=== PATIENT | male | born 1950 | race Caucasian/White ===

== ENCOUNTER 2017-10-04 11:08 | Inpatient (IN) | payer OTHER ==
[~2017-10-04] VITALS: Ht 188 cm; Wt 115.7 kg
[2017-10-04 11:12] VITALS: BP 178/125
[2017-10-04] MEDS ORDERED: FISH OIL 1,001000 M2 PO (11:20)
[2017-10-04] MEDS ORDERED: FLOMAX0.4 MG PO (11:20)
[2017-10-04] MEDS ORDERED: METFORMIN HCL500 MG PO (11:20)
[2017-10-04 11:40] LABS: ABSOLUTE BASOPHILS 0.1 thou/uL (0.0-0.2); ABSOLUTE EOSINOPHILS 0.1 thou/uL (0.0-0.7); ABSOLUTE LYMPHOCYTES 1.4 thou/uL (0.8-5.3); ABSOLUTE MONOCYTES 0.6 thou/uL (0.0-1.2); BASOPHILS 1.2 %; EOSINOPHILS 1.6 %; HEMATOCRIT 50.5 % (42.0-52.0); HEMOGLOBIN 16.2 gm/dL (14.0-18.0); LYMPHOCYTES 17.3 %; MCH 29.3 pg (26.0-34.0); MCHC 32.1 g/dL (28.0-37.0); MCV 91.2 fL (80.0-100.0); MONOCYTES 7.2 %; MPV 9.2 fl. (7.2-11.1); NUCLEATED RBCS 0 /100WBC; PLATELET COUNT* 258 thou/uL (150-400); POLYS 72.7 %; RBC 5.53 mil/uL (4.50-6.00); RDW-CV 15.6 % (10.5-14.5); WBC 8.3 thou/uL (4.0-11.0)
[2017-10-04 12:00] LABS: APTT 25.8 Seconds (25.0-31.3); INR 1.2
[2017-10-04 13:03] LABS: ANION GAP 11 mmol/L (7-16); BUN 16 mg/dL (7-18); CALCIUM 8.4 mg/dL (8.5-10.1); CHLORIDE 107 mmol/L (98-107); CO2 29 mmol/L (21-32); CREATININE 1.3 mg/dL (0.6-1.3); GLUCOSE 204 mg/dL (70-99); POTASSIUM 4.2 mmol/L (3.5-5.1); SODIUM 147 mmol/L (136-145)
[2017-10-04 13:28] LABS: ALBUMIN 3.5 g/dL (3.4-5.0); ALKALINE PHOSPHATASE 73 U/L (46-116); CK-MB MASS 0.8 ng/mL (<0.5-3.6); LIPASE 127 U/L (73-393); MAGNESIUM 1.6 mg/dL (1.8-2.4); NT-PRO BRAIN NAT PEPTIDE 7957 pg/mL (<300); SGOT 23 U/L (15-37); SGPT 29 U/L (30-65); TOTAL BILIRUBIN 1.2 mg/dL (<0.1-1.0); TOTAL PROTEIN 6.7 g/dL (6.4-8.2); TROPONIN-I LEVEL <0.06 ng/mL (<0.06)
[2017-10-04 15:33] VITALS: BP 181/126
[2017-10-04 15:54] VITALS: BP 176/121
[2017-10-04 18:15] VITALS: BP 172/110
[2017-10-04 21:30] VITALS: BP 155/91
[2017-10-05] VITALS (7 sets, daily range): BP systolic 112–141; BP diastolic 81–109
[2017-10-05 04:58] LABS: HEMATOCRIT 43.2 % (42.0-52.0); MCH 28.9 pg (26.0-34.0); MCHC 32.5 g/dL (28.0-37.0); MCV 88.8 fL (80.0-100.0); MPV 9.1 fl. (7.2-11.1); RBC 4.86 mil/uL (4.50-6.00); RDW-CV 15.2 % (10.5-14.5); WBC 6.7 thou/uL (4.0-11.0)
[2017-10-05 05:14] LABS: ANION GAP 7 mmol/L (7-16); BUN 18 mg/dL (7-18); CALCIUM 8.1 mg/dL (8.5-10.1); CHLORIDE 106 mmol/L (98-107); CO2 31 mmol/L (21-32); CREATININE 1.3 mg/dL (0.6-1.3); GLUCOSE 227 mg/dL (70-99); MAGNESIUM 1.7 mg/dL (1.8-2.4); POTASSIUM 3.6 mmol/L (3.5-5.1); SODIUM 144 mmol/L (136-145); TROPONIN-I LEVEL <0.06 ng/mL (<0.06)
[2017-10-05 10:23] LABS: URINE BILIRUBIN NEGATIVE (Negative); URINE BLOOD TRACE (Negative); URINE CLARITY CLEAR; URINE COLOR YELLOW; URINE GLUCOSE-RANDOM 1+ (Negative); URINE KETONES TRACE (Negative); URINE LEUKOCYTES-REFLEX NEGATIVE (Negative); URINE NITRITE-REFLEX NEGATIVE (Negative); URINE PROTEIN 2+ (Negative); URINE SPECIFIC GRAVITY 1.025 (1.005-1.030); URINE UROBILINOGEN 0.2 E.U./dl (0.2-1.0)
[2017-10-05 10:40] LABS: BACTERIA-REFLEX None Seen /HPF (None Seen); CASTS None Seen /LPF (None Seen); CRYSTALS None Seen /LPF (None Seen); MUCUS 4-6 Moderate strn/LPF (None Seen); SQUAMOUS 4-10 Moderate /LPF (0-3); URINE RBC 3-10 Few /HPF (0-2); URINE WBC-REFLEX 0-5 Rare /HPF (0-5)
[2017-10-05 11:46] LABS: MAGNESIUM 1.7 mg/dL (1.8-2.4); TROPONIN-I LEVEL <0.06 ng/mL (<0.06)
--- NOTE | 2017-10-05 13:17 | EKG ---
[place] [address] ELECTROCARDIOGRAM REPORT Name: VONNIE LUEVANODIXi Jose Room: [address] ADM IN M.R.#: [id number] Admission: 10/04/17 Attend Phys: Tushar Leonard, Discharge: Date of : 52 Report #: [id number] THIS REPORT FOR: //name// [facility] ED Test Date: 2017-10-04 Test Time: 11:16:49 Pat Name: SHREYA LUEVANO Department: Room: [facility] Gender: M Practical Nurse Clinical Coordinator: DANYELL : 1950 Requested By: Jose Giang Order Number: [id number] MD: Leonel Chiang Measurements Intervals [place] Rate: 110 P: 170 IA: 192 QRS: -33 QRSD: 102 T: 134 QT: 334 QTc: 452 Interpretive Statements Sinus or ectopic atrial tachycardia Left atrial enlargement Left axis deviation Anteroseptal infarct, age indeterminate No previous ECG available for comparison Electronically Signed On 10-05-2017 13:17:31 CONVENTIONS ASSISTANT by Leonel Chiang [email or web address] <ELECTRONICALLY SIGNED> By: Leonel Chiang MD, [facility] 10/05/17 1317 1116 111 Leonel Chiang MD, [facility] /EPI
[2017-10-06 00:09] VITALS: BP 119/92
[2017-10-06 03:59] VITALS: BP 143/109
--- NOTE | 2017-10-06 07:29 | CON ---
[address] [address] CONSULTATION Name: SHREYA LUEVANO Room: [address] IN M.R.#: [id number] Admission: 10/04/17 Attend Phys: Tushar Leoanrd, Discharge: Date of : 52 Report #: [id number] THIS REPORT FOR: //name// CC: [facility]AMP physician/PCP Tushar Leonard REQUESTING PHYSICIAN: Dr. Tushar Leonard. REASON FOR CONSULTATION: Pulmonary embolism. DISCUSSION: The patient is a pleasant 66-year-old nonsmoking man who was admitted after presenting to the Emergency Department yesterday and found to have pulmonary embolism. He had actually not been feeling well for about a month or so. He noted the onset of chest congestion, which he felt was probably a "cold." Cough generally has been mostly nonproductive, no hemoptysis. He may have had a low-grade fever at home. Over the course of the month, he has been getting progressively more short of breath. It got to the point he had difficulty walking short distances. He has also had the onset of lower extremity edema, which has been getting worse. He notes some tightness. Some numbness and tingling in his legs, left greater than right. No syncopal episodes. He has also been having some chest pressure. He does point to left side of his chest. It is worse when he does exert himself, especially when he is going out into the cold. 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 This does involve him being quite busy. 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 He has had no prior history of thromboembolic disease. No history of heart disease that he is aware of. When seen in the Emergency Department yesterday, he did not appear to be in any acute distress. He was noted to have edema in the lower extremities. His lab did reveal elevated D-dimer and proBNP. He had a chest x-ray done, did reveal evidence of pleural effusions. Followup CT angiogram of his chest with PE protocol did reveal pulmonary emboli. He has been admitted. He has already been started on Xarelto. This morning, he does feel like his shortness of breath is a little better. However, he has not been as active as he is normally at home. His cough has persisted. He has not had any additional chest pressure this morning. He is a lifelong nonsmoker. He has no history of pulmonary disease. No prior history of thromboembolic disease. He does have a history of diabetes mellitus type 2. However, he does have a physician in [facility]; his description, he has not been regular with followup. At home, he does take metformin and Flomax. PAST MEDICAL HISTORY: Remarkable 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 Nonsmoker as noted. REVIEW OF SYSTEMS: A 12-point ROS was done. No positives as above. He does admit to a substantial weight loss over the last couple of years, he cannot be specific as to the amount; however, it has been intentional. He denies any difficulty swallowing. His appetite has fallen off recently. He denies any indigestion or heartburn. He has not noted any blood in his stools. No hemoptysis. He has had the lower extremity edema as noted. No syncopal episodes. FAMILY HISTORY: Negative for heart disease, cancers, thromboembolic disease. PHYSICAL EXAMINATION: GENERAL: Appearance of a large man. He is resting in bed. He has a frequent, somewhat harsh nonproductive cough. At rest, he is in no acute distress. HEENT: Normocephalic and atraumatic. Sclerae are nonicteric. Mucous membranes are moist. Dentition is fair. NECK: Large, but supple without adenopathy. No definite JVD is appreciated. No supraclavicular adenopathy. HEART: Regular with periods of irregularity. Grade 1/6 systolic murmur. I do not appreciate an S3. P2 does not appear accentuated. LUNGS: Sounds reveal breath sounds to be generally diminished in part due to his large body habitus. May have a few faint crackles heard in the bases associated with late inspiration. No dullness to percussion. No E to A changes. No CVA tenderness. ABDOMEN: Very large and obese. Does not appear to have any hepatosplenomegaly. Nontender. EXTREMITIES: He does have 2+ edema noted. Just some generalized discomfort with palpation. No obvious cords are noted. He does have a few small varicosities noted. SKIN: Warm and dry. NEUROLOGIC: He is alert and oriented x 3. LABORATORY AND X-RAY FINDINGS: Yesterday's white count was 8300, hemoglobin 16.2, hematocrit 50.5, platelets 258,000. This morning, hemoglobin 14, hematocrit 43.2. PT, PTT were normal. D-dimer was 10.2. On his chemistries, potassium 3.6, BUN 18, creatinine of 1.3 this morning. Glucose 227 and other sugars have been in the 200-300 range. Troponins normal. Total bilirubin 1.2, AST 23, ALT 29. ProBNP 7957. He had a chest x-ray which did show cardiomegaly. Some bibasilar atelectatic changes seen. Blunting of costophrenic angles, all consistent with small pleural effusions. CT angiogram done of his chest, did show filling defects noted on the right side for right upper and right middle lobe. There are small pleural effusions noted. Cardiomegaly. Some mild atelectatic changes seen in the bases. Small amount [place] [address] CONSULTATION Name: SHREYA LUEVANO Room: [address] IN [facility]#: [id number] Admission: 10/04/17 Attend Phys: Tushar Leonard, Discharge: Date of : 52 Report #: [id number]. Ultrasound of his lower extremities is pending. Echo has been requested as well. IMPRESSION: 1. Pulmonary embolism. No prior history. By history, he is generally fairly active, though he is frequently on long automobile trips. This may be a risk factor. 2. Possible congestive heart failure. More of this may be right heart failure as well. He is a nonsmoker, he is a diabetic, and certainly be at risk for coronary artery disease. He has elevated BNP. The troponin is normal, so far has not had any acute coronary event. He has had intermittent complaints of chest tightness, maybe as an anginal equivalent. 3. Obesity. 4. Diabetes mellitus. Blood sugar was high at time of admission here. By history, he has not had good control. RECOMMENDATIONS: 1. Continue Xarelto at this time. 2. Do need echocardiogram and venous Dopplers to further assess. 3. Activity as tolerated. 4. Agree with Cardiology seeing him. At a minimum, he will probably need some type of stress testing done. 5. He will need closer followup in regards to better control of his diabetes. 6. Depending on evaluation, assess if additional hypercoagulable workup needs to be done. <ELECTRONICALLY SIGNED> By: Sarah Marshall MD 10/06/17 0729 0841 [id number] Marshall MD /nt
[2017-10-06 08:00] VITALS: BP 156/109
--- NOTE | 2017-10-06 09:08 | CON ---
[address] [address] CONSULTATION Name: SHREYA LUEVANO Room: [address] IN M.R.#: [id number] Admission: 10/04/17 Attend Phys: Tushar Leonard, Discharge: Date of : 52 Report #: [id number] THIS REPORT FOR: //name// CC: [facility]AMP physician/PCP VERENICE Leonard INDICATION: Pulmonary embolus and possible congestive heart failure. HISTORY OF PRESENT ILLNESS: The patient is a very pleasant 66-year-old gentleman who has been fairly active throughout most of his adult life. 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 A month ago, he noted increasing swelling in his lower extremities as well as the progressive onset of dyspnea on exertion as well as some orthopnea and PND. He presented to the hospital for further evaluation. In this setting, he was found to have an elevated D-dimer. Followup CTA of the chest showed evidence of acute right middle and upper lobe pulmonary emboli. He has been started on anticoagulation for this. EKG shows sinus rhythm with Q-waves in the anteroseptal leads suggestive of prior anteroseptal infarct. The patient himself denies any prior history of coronary artery disease or myocardial infarction. He denies any history of stroke. Cardiac risk factors include hypertension, hyperlipidemia and type 2 diabetes mellitus. He was given IV Lasix on admission to the hospital with prompt diuresis. With this and the initiation of anticoagulation therapy, he has had improvement in his breathing. He reports intermittent chest pressure, especially with physical activity and cold weather. He is not having any significant resting symptoms at this time. He is without other cardiac complaint. PAST MEDICAL HISTORY: 1. Type 2 diabetes mellitus. 2. Hyperlipidemia. 3. Hypertension. PAST SURGICAL HISTORY: None. SOCIAL HISTORY: The patient does not smoke. He quit smoking 40 years ago and did not smoke much then. He does not drink alcohol. He is presently single, . FAMILY HISTORY: Noncontributory. ALLERGIES: None. CURRENT MEDICATIONS: Metformin 500 mg b.i.d., Flomax 0.4 mg daily, fish oil 1000 mg daily. REVIEW OF SYSTEMS: A 14-point review of systems [place] [address] CONSULTATION Name: SHREYA LUEVANO Room: [address]#: [id number] Admission: 10/04/17 Attend Phys: Tushar Leonard, Discharge: Date of : 52 Report #: [id number] nonproductive, orthopnea, paroxysmal nocturnal dyspnea and dyspnea on exertion. He has chest pressure as outlined above. He reports diabetes, but no thyroid disease. He has no gastrointestinal complaints. He has urinary hesitancy, but no dysuria, hematuria. He denies any history of anemia, bleeding disorder, cancer or blood clots. He denies any significant allergies. No history of depression or anxiety. He has some arthritis without connective tissue disease. No recent rashes, hives or chronic skin conditions. He has no acute loss in vision. He denies decreased hearing, epistaxis or dentures. PHYSICAL EXAMINATION: VITAL SIGNS: Stable. Blood pressure 126/81, pulse 88 and regular. GENERAL: This is a pleasant gentleman who is in no distress. Mood and affect appropriate. HEENT: Extraocular muscles intact. Mucous membranes moist. NECK: Shows no jugular venous distention. I do not appreciate any carotid bruits. CHEST: Reveals clear lung coffman. I do not appreciate wheezes, rales or rhonchi. CARDIOVASCULAR: Reveals a regular rhythm with normal S1 and S2. I do not appreciate gallop or murmur. ABDOMEN: Reveals normal bowel sounds. The abdomen is soft and nontender. EXTREMITIES: Shows 2+ edema to above the knees bilaterally. SKIN: Warm and dry. LABORATORY DATA: A 12-lead EKG shows sinus rhythm with Q-waves in the anteroseptal leads suggestive of prior anteroseptal infarct. There are nonspecific T-wave inversion. Labs are reviewed. Troponins are unremarkable. NT-proBNP was 7500. Chest x-ray shows small left pleural effusion and some basilar atelectasis. CTA of the chest shows evidence of acute pulmonary emboli of the right upper and middle lobes. IMPRESSION AND RECOMMENDATIONS: 1. Acute pulmonary embolus. Recommend Xarelto 20 mg daily x 6 months. Venous Doppler studies of the lower extremities showed no evidence of DVT at this time. 2. Probable congestive heart failure. Recommend echocardiogram and stress testing. These could be obtained on an outpatient basis. Would continue moderate dose diuretic with potassium supplementation at this time to resolve volume overload. 3. Hypertension. We would recommend initiating low dose carvedilol at this [address] [place] [address] CONSULTATION Name: SHREYA LUEVANO Room: [address] IN M.R.#: [id number] Admission: 10/04/17 Attend Phys: Tushar GiseleChacorta Aisha, Discharge: Date of : 52 Report #: [id number] time. 4. History of hyperlipidemia. Recommend fasting lipid profile. <ELECTRONICALLY SIGNED> By: Leonel Chiang MD, FACC 10/06/17 0908 1221 [id number] Chiang MD, FACC /nt
[2017-10-06 12:51] VITALS: BP 164/119
[2017-10-06 17:00] VITALS: BP 151/102
[2017-10-06 20:00] VITALS: BP 158/106
[2017-10-07] VITALS (7 sets, daily range): BP systolic 120–155; BP diastolic 87–109
[2017-10-07 06:48] LABS: ANION GAP 9 mmol/L (7-16); BUN 21 mg/dL (7-18); CALCIUM 8.4 mg/dL (8.5-10.1); CHLORIDE 105 mmol/L (98-107); CHOLESTEROL 132 mg/dL (<200); CO2 33 mmol/L (21-32); CREATININE 1.2 mg/dL (0.6-1.3); GLUCOSE 103 mg/dL (70-99); HDL CHOLESTEROL 39 mg/dL (>40); LDL CHOLESTEROL 74 mg/dL (<100); POTASSIUM 3.4 mmol/L (3.5-5.1); SODIUM 147 mmol/L (136-145); TC:HDL 3.4 Ratio (Not establshd); TRIGLYCERIDE 97 mg/dL (<150); VLDL 19 mg/dL (<40)
[2017-10-07 06:49] LABS: SERUM ASSESSMENT Clear
--- NOTE | 2017-10-07 15:15 | CARDNUC ---
[place] [address] CARDIAC NUCLEAR IMAGING REPORT Name: SHREYA LUEVANO Room: [address] IN [facility]#: [id number] Admission: 10/04/17 Attend Phys: Tushar Wells Discharge: Date of : 52 Date of Service: 10/07/17 1515 Report #: [id number] THIS REPORT FOR: //name// APPROVED REPORT Exam: Nuclear Stress Test Indication: Chest pain, Dyspnea Patient Location: In-Patient Stress Tech: Anneliese Garcia Stress Nurse: Nanci Corona RN [place] Tech:AMOR Echevarria Ht: 6 ft 2 in Wt: 267 lbs BSA: 2.46 m2 BMI: 34.27 Medical History Medical History: pulomnary emboli right lung, mi, hyperlipidemia, htn, dm Medications: carvedilol, furosemide, lisinopril, rivaroxabin Allergies: nkda Cardiac Risk Factors: Age, HTN, Hyperlipidemia, DM Meds Held (24 hrs): carvedilol Stress Test Details Stress Test: Pharmacologic stress testing performed using 0.4 mg of regadenoson per 5 mL given IV over 10 seconds. Reason for pharmacologic stress test: physical limitation. HR Resting HR: 87 bpm Max Heart Rate (APMHR): 155 bpm Max HR Achieved: 96 bpm Target HR (85% APMHR): 131 bpm % of APMHR: 61 Recovery HR: 98 bpm BP Resting BP: 152/109 mmHg Max BP: 158/104 mmHg ECG Resting ECG: Sinus Rhythm, nonspecific ST-T abnormalities Stress ECG: Sinus Rhythm, nonspecific ST-T abnormalities ST Change: None Arrhythmia: [place] [address] CARDIAC NUCLEAR IMAGING REPORT Name: SHREYA LUEVANO Room: [address]#: [id number] Admission: 10/04/17 Attend Phys: Tushar Wells Discharge: Date of : 52 Date of Service: 10/07/17 1515 Report #: [id number] Recovery ECG: Sinus Rhythm, nonspecific ST-T abnormalities Recovery ST Change: None Recovery Arrhythmia: None Clinical Reason for Termination: Completed protocol Stress Symptoms: none Exercise duration: 0 min sec Exercise capacity: 1 METs The patient had no significant symptoms with Lexiscan infusion. Nurse Comments pt tolerated well Stress ECG Conclusion The baseline EKG showed sinus rhythm with nonspecific mild downsloping ST segment depression diffusely. EKGs obtained during and post Lexiscan infusion showed sinus rhythm with no significant ST or T wave changes when compared to baseline. There were no stress-induced arrhythmias. NM EXAM: Myocardial Perfusion STRESS/REST Imaging Protocol: Stress Tc-99m/Rest Tc-99m 2 days Pharmacologic Stress Pharmacologic stress test was performed by injecting Regadenoson 0.4 mg IV push followed by the intravenous injection of 41.2 mCi of Tc-99m Sestamibi. Time of stress injection: 1105 Date: 10/07/2017 Time of stress imagin Administration Route: IV Gated Stress SPECT was performed 40 minutes after stress injection. The images were gated to evaluate regional wall motion and calculate left ventricular ejection fraction. Prone imaging was performed. Study Quality Study: Good Artifact: No artifact Study Data Post stress, the left ventricular ejection was 29%.. [place] [address] CARDIAC NUCLEAR IMAGING REPORT Name: SHREYA LUEVANO Room: [address] IN [facility]#: [id number] Admission: 10/04/17 Attend Phys: Tushar Wells Discharge: Date of : 52 Date of Service: 10/07/17 1515 Report #: [id number] Perfusion Normal left ventricular perfusion. Wall Motion There is severe diffuse global hypokinesis. Nuclear Conclusion ECG Findings: non-diagnostic Clinical Findings: negative for ischemia Nuclear Findings: negative for ischemia Exercise Capacity: not assessed Left Ventricular Function: abnormal Risk Study: moderate Perfusion images show no defect to suggest infarct or ischemia. Left ventricular systolic function is severely decreased with global hypokinesis. Findings consistent with nonischemic cardiomyopathy. This study is at least moderate risk based on left ventricular systolic dysfunction. <Conclusion> The baseline EKG showed sinus rhythm with nonspecific mild downsloping ST segment depression diffusely. EKGs obtained during and post Lexiscan infusion showed sinus rhythm with no significant ST or T wave changes when compared to baseline. There were no stress-induced arrhythmias. <ELECTRONICALLY SIGNED> By: Leonel Chiang MD, FACC 10/07/17 1515 14 1515 Leonel Chiang MD, FACC /INF
--- NOTE | 2017-10-07 15:28 | EKG ---
[place] [address] ELECTROCARDIOGRAM REPORT Name: VONNIE LUEVANODIXi Jose Room: [address] ADM IN M.R.#: [id number] Admission: 10/04/17 Attend Phys: Tushar Leonard, Discharge: Date of : 52 Report #: [id number] THIS REPORT FOR: //name// [facility] Test Date: 2017-10-05 Test Time: 16:59:17 Pat Name: SHREYA LUEVANO Department: Room: [address] Gender: M Melangeur Operator: : 1950 Requested By: Tushar Leonard Order Number: [id number] MD: Leonel Chiang Measurements Intervals [place] Rate: 99 P: 43 IA: 166 QRS: -9 QRSD: 108 T: 204 QT: 361 QTc: 464 Interpretive Statements Sinus rhythm Left atrial enlargement Anteroseptal infarct, old Nonspecific T abnormalities, lateral leads Baseline wander in lead(s) V1 Compared to ECG 10/04/2017 11:16:49 T-wave abnormality now present Left-axis deviation no longer present Myocardial infarct finding still present Electronically Signed On 10-07-2017 15:28:29 AUTOMOBILE UPHOLSTERER by Leonel Chiang [email or web address] <ELECTRONICALLY SIGNED> By: Leonel Chiang MD, FACC 10/07/17 1528 1659 1659 Leonel Chiang MD, FACC /EPI
--- NOTE | 2017-10-07 15:55 | 2DMMODE ---
[place] [address] 2 D/M-MODE ECHOCARDIOGRAM Name: SHREYA LUEVANO Room: [address] IN [facility]#: [id number] Admission: 10/04/17 Attend Phys: Tushar Wells Discharge: Date of : 52 Date of Service: 10/07/17 1555 Report #: [id number] THIS REPORT FOR: //name// APPROVED REPORT Study performed: 10/07/2017 14:30:05 EXAM: Comprehensive 2D, Doppler, and color-flow Echocardiogram Patient Location: In-Patient Room #: [facility] Status: routine BSA: 2.48 HR: 97 bpm BP: 154/108 mmHg Rhythm: NSR Other Information Study Quality: Good Indications Chest Pressure 2D Dimensions LVEF(%): 27.52 (>50%) IVSd: 15.21 (7-11mm) LVOT Diam: 23.54 (18-24mm) LVDd: 56.08 mm PWd: 15.06 (7-11mm) Ascending Ao: 35.17 (22-36mm) LVDs: 48.80 (25-40mm) Aortic Root: 40.72 mm Frey's LVEF: 27.52 % Volumes Left Atrial Volume (Systole) LA ESV Index: 37.20 mL/m2 Aortic Valve AoV Peak Diogo.: 1.20 m/s AO Peak Gr.: 5.80 mmHg LVOT Max P.89 mmHg AO Mean Gr.: 3.73 mmHg LVOT Mean P.44 mmHg LVOT Max V: 0.85 m/s AO V2 VTI: 21.08 cm LVOT Mean V: 0.55 m/s SYLVESTER (VTI): 2.96 cm2 LVOT V1 VTI: 14.35 cm Mitral Valve E/A Ratio: 1.13 [place] [address] 2 D/M-MODE ECHOCARDIOGRAM Name: SHREYA LUEVANO Room: [address] IN [facility].#: [id number] Admission: 10/04/17 Attend Phys: Tushar Wells Discharge: Date of : 52 Date of Service: 10/07/17 1555 Report #: [id number] MV Decel. Time: 174.73 ms MV E Max Diogo.: 0.97 m/s MV PHT: 50.67 ms MVA (PHT): 4.34 cm2 TDI E/Lateral E': 13.86 E/Medial E': 16.17 Medial E' Diogo.: 0.06 m/s Lateral E' Diogo.: 0.07 m/s Pulmonary Valve PV Peak Diogo.: 0.68 m/s PV Peak Gr.: 1.87 mmHg Tricuspid Valve TR Peak Gr.: 25.93 mmHg RVSP: 30.00 mmHg Left Ventricle Left ventricle is mildly dilated. There is normal LV segmental wall motion. Moderate concentric left ventricular hypertrophy. Left ventricular systolic function is moderate to severely decreased. LVEF is 30-35%. Transmitral Doppler flow pattern suggests restrictive physiology. Right Ventricle The right ventricle is normal size. The right ventricular systolic function is normal. Atria Left atrium is moderately dilated. Right atrium is moderately dilated. Aortic Valve The aortic valve is normal in structure. Trace aortic regurgitation. There is no aortic valvular stenosis. Mitral Valve The mitral valve is normal in structure. Trace mitral regurgitation. No evidence of mitral valve stenosis. Tricuspid Valve The tricuspid valve is normal in structure. Trace tricuspid regurgitation. The RVSP is 35-40 mmHg. Pulmonic Valve The pulmonary valve is normal in structure. [place] [address] 2 D/M-MODE ECHOCARDIOGRAM Name: SHREYA LUEVANO Room: [address]#: [id number] Admission: 10/04/17 Attend Phys: Tushar Wells Discharge: Date of : 52 Date of Service: 10/07/17 1555 Report #: [id number] Great Vessels The aortic root is normal in size. IVC is normal in size and collapses with >50% inspiration Pericardium There is no pericardial effusion. <Conclusion> Left ventricle is mildly dilated. Moderate concentric left ventricular hypertrophy. Left ventricular systolic function is moderate to severely decreased. LVEF is 30-35%. Transmitral Doppler flow pattern suggests restrictive physiology. Left atrium is moderately dilated. Right atrium is moderately dilated. Trace aortic regurgitation. Trace tricuspid regurgitation. The RVSP is 35-40 mmHg. <ELECTRONICALLY SIGNED> By: Leonel Chiang MD, FACC 10/07/17 1555 1555 1555 Leonel Chiang MD, FACC /INF
[2017-10-07 19:30] LABS: URINE BLOOD 3+ (Negative); URINE CLARITY CLOUDY; URINE COLOR RED; URINE GLUCOSE-RANDOM 1+ (Negative); URINE KETONES TRACE (Negative); URINE LEUKOCYTES-REFLEX TRACE (Negative); URINE NITRITE-REFLEX NEGATIVE (Negative); URINE PROTEIN 2+ (Negative); URINE SPECIFIC GRAVITY 1.015 (1.005-1.030)
[2017-10-07 19:38] LABS: URINE BILIRUBIN 1+ (Negative)
[2017-10-07 19:40] LABS: ICTOTEST (BILI CONFIRMATORY) Negative (Negative)
[2017-10-07 19:49] LABS: BACTERIA-REFLEX None Seen /HPF (None Seen); CASTS None Seen /LPF (None Seen); CRYSTALS None Seen /LPF (None Seen); SQUAMOUS 0-3 Few /LPF (0-3); URINE RBC >20 Many /HPF (0-2); URINE WBC-REFLEX 0-5 Rare /HPF (0-5)
[2017-10-08 04:00] VITALS: BP 132/86
[2017-10-08 04:50] LABS: HEMOGLOBIN 14.4 gm/dL (14.0-18.0); MCH 29.2 pg (26.0-34.0); MCHC 32.7 g/dL (28.0-37.0); MCV 89.3 fL (80.0-100.0); MPV 8.9 fl. (7.2-11.1); RBC 4.92 mil/uL (4.50-6.00); RDW-CV 14.9 % (10.5-14.5); WBC 8.7 thou/uL (4.0-11.0)
[2017-10-08 05:13] LABS: CALCIUM 8.2 mg/dL (8.5-10.1); CREATININE 1.2 mg/dL (0.6-1.3); MAGNESIUM 1.7 mg/dL (1.8-2.4); POTASSIUM 3.7 mmol/L (3.5-5.1)
[2017-10-08 08:13] VITALS: BP 139/97
[2017-10-08] MEDS ORDERED: CARVEDILOL25 MG PO (09:53)
[2017-10-08] MEDS ORDERED: LISINOPRIL20 MG PO (09:53)
[2017-10-08] MEDS ORDERED: POTASSIUM20 PO (09:53)
[2017-10-08] MEDS ORDERED: LASIX 40 MG TAB40 M1 PO (09:53)
[2017-10-08 11:24] VITALS: BP 145/103
[2017-10-08 16:00] VITALS: BP 136/85
[2017-10-08 20:00] VITALS: BP 115/84
[2017-10-09] VITALS: BP 122/89
[2017-10-09 04:00] VITALS: BP 144/102
[2017-10-09 07:30] VITALS: BP 148/104
[2017-10-09] MEDS ORDERED: CLONIDINE1 EACH TRANSDERM (11:27)
[2017-10-09] MEDS ORDERED: XARELTO20 MG PO (11:27)
[2017-10-09] MEDS ORDERED: LEVAQUIN 500 M500 M4 PO (11:27)
[2017-10-09 11:42] VITALS: BP 137/95
[2017-10-09 14:41] VITALS: BP 137/95
[2017-10-10 10:07] LABS: ANTI-DNA SCREEN 1 IU/mL (0-9); ANTI-RNP <0.2 AI (0.0-0.9)
--- NOTE | 2017-10-16 12:50 | CON ---
[address] [address] CONSULTATION Name: SHREYA LUEVANO Room: [address] IN .R.#: [id number] Admission: 10/04/17 Attend Phys: Tushar Leonard, Discharge: 10/09/17 Date of : 52 Report #: [id number] THIS REPORT FOR: //name// CC: [facility] physician/PCP Tushar Leonard REFERRING PHYSICIAN: Tushar Leonard MD REASON FOR CONSULTATION: Urinary retention. HISTORY OF PRESENT ILLNESS: This is a 66-year-old male admitted with multiple medical problems including pulmonary embolus. Urology is consulted regarding urinary retention. The patient reports he takes Flomax chronically for prostatism and has done well with this. He states that prior to admission, he was voiding with a good stream and no sensation of incomplete emptying. Denies dysuria, hematuria, or flank pain. He reports that during hospitalization, he became acutely unable to void and experienced severe bladder discomfort, which was relieved with placement of a 14-Jamaican urethral catheter. He denies any history of prostate or urinary tract surgery. He is not sure about prior PSAs, but has been told his prostate is enlarged in the past. He does not know of any family history of prostate cancer. PAST MEDICAL HISTORY: As above. The patient also has a history of diabetes. FAMILY HISTORY: As above. He does not know of any family history of renal disease. ALLERGIES: No known drug allergies. MEDICATIONS: Prior to admission include metformin, Flomax, and fish oil. Medication list here is reviewed. SOCIAL HISTORY: He denies use of alcohol or tobacco, having quit smoking decades ago. REVIEW OF SYSTEMS: As per the history of present illness. He reports cough, shortness of breath, and chest pressure on admission, which have all improved. Denies nausea, vomiting, or diarrhea. PHYSICAL EXAMINATION: VITAL SIGNS: Reviewed. These include temperature of 36.8, pulse of 87, respirations 18, and blood pressure 139/97. GENERAL: This is a 66-year-old male, in no acute distress. He is awake, alert and answers questions appropriately. HEENT: Normocephalic and atraumatic. Mucous membranes are moist. Oropharynx is clear. Poor dentition. NECK: [place] [address] CONSULTATION Name: SHREYA LUEVANO Room: [address]#: [id number] Admission: 10/04/17 Attend Phys: Tushar Leonard, Discharge: 10/09/17 Date of : 52 Report #: [id number] CARDIAC: Rhythm is regular. RESPIRATORY: Effort and excursion are normal. Chest wall is nontender. ABDOMEN: Soft, nontender and nondistended. Spine and costovertebral angles are nontender. EXTREMITIES: Warm. Moves all extremities well. He has mild bilateral lower extremity edema. GENITOURINARY: Skin of the penis and scrotum is normal. He has mild phimosis. Urethral meatus is orthotopic. There is a Mendez catheter in place, draining blood-tinged urine with no clots. Left testicle is normal with no palpable masses or tenderness. Right testicle is diffusely firm and tender. The patient reports it has been like this for years, but he is not sure when he first noticed it. He reports that this has been stable for a long time with no change in size and is generally not painful for him. There is no erythema of the scrotum or skin fixation. There is no fluctuance. There is no palpable inguinal adenopathy. RECTAL: Digital rectal exam reveals normal anus and sphincter tone. Prostate is moderately enlarged with no tenderness or nodularity. LABORATORY STUDIES: Include white count of 8.7, hemoglobin 14.4, and platelet count 255,000. Sodium 145, potassium 3.7, chloride 105, CO2 of 33, BUN 19, creatinine 1.2, and glucose 135. Urinalysis from the time of his catheterization revealed many red cells, 0-5 white cells and no bacteria. Culture on that has been ordered. Ultrasound of the abdomen revealed no renal abnormalities. IMPRESSION: 1. Benign prostatic hypertrophy with urinary retention. He reportedly had several 100 mL of urine in his bladder when the catheter was placed with some difficulty. I irrigated the catheter at bedside with a piston syringe and sterile saline to confirm position and the catheter irrigates and drains easily with no clots and with clear fluid return. From that standpoint, I would recommend continuing Flomax and leaving the Mendez catheter in place for 5-7 days approximately. He is discharged in the interim, he can certainly follow up as an outpatient for catheter management. 2. 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 I discussed possible etiologies with him including inflammatory etiologies and neoplastic etiologies. Recommended evaluating this first with a scrotal ultrasound, which has been ordered. We discussed possible need for surgical intervention regarding this and the importance of followup if he is discharged home prior to having this completely evaluated. He voices understanding. We will await urine culture results. I would defer PSA at this time due to instrumentation, but we can certainly follow along regarding that in the future[place] [address] CONSULTATION Name: SHREYA LUEVANO Room: [address]#: [id number] Admission: 10/04/17 Attend Phys: Tushar Leonard, Discharge: 10/09/17 Date of : 52 Report #: [id number] following while the patient is here with further results. If he is dismissed home, I would recommend followup in approximately one week in the office. <ELECTRONICALLY SIGNED> By: Jw Ramey MD 10/16/17 1250 1030 [id number] Ramey MD /nt
== END 2017-10-09 16:18 | disposition home or self-care (01) | DRG 291 ==
LOC: M.ERS 11:08 → M.2W 14:22 → M.TBA-ER 14:22 → M.2W 15:26
PROVIDERS: Family Medicine; Internal Medicine; Internal Medicine Cardiovascular Disease; Internal Medicine Critical Care Medicine; ADMIT Family Medicine
DX: I11.0 Hypertensive heart disease with heart failure (principal); I26.99 Other pulmonary embolism without acute cor pulmonale; J18.9 Pneumonia, unspecified organism; I50.23 Acute on chronic systolic (congestive) heart failure; E11.9 Type 2 diabetes mellitus without complications; E78.5 Hyperlipidemia, unspecified; E66.9 Obesity, unspecified; N40.1 Benign prostatic hyperplasia with lower urinary tract symptoms; I42.9 Cardiomyopathy, unspecified; R33.8 Other retention of urine; I16.0 Hypertensive urgency; R80.9 Proteinuria, unspecified; R07.9 Chest pain, unspecified; R31.9 Hematuria, unspecified; N50.9 Disorder of male genital organs, unspecified; Z79.899 Other long term (current) drug therapy; Z79.84 Long term (current) use of oral hypoglycemic drugs; Z68.32 Body mass index [BMI] 32.0-32.9, adult; Z87.891 Personal history of nicotine dependence; Z28.21 Immunization not carried out because of patient refusal

== ENCOUNTER 2019-08-17 18:02 | Inpatient (IN) | payer MEDICARE ==
[~2019-08-17] VITALS: Ht 188 cm; Wt 113.4 kg
[~2019-08-17 18:02] MED LIST: CARVEDILOL25 MG PO; CLONIDINE1 EACH TRANSDERM; FISH OIL 1,001000 M2 PO; FLOMAX0.4 MG PO; LASIX 40 MG TAB40 M1 PO; LEVAQUIN 500 M500 M4 PO; LISINOPRIL20 MG PO; METFORMIN HCL500 MG PO; POTASSIUM20 PO; XARELTO20 MG PO
[2019-08-17 18:09] VITALS: BP 140/83
[2019-08-17] MEDS ORDERED: LIPITOR10 MG PO (18:15)
[2019-08-17] MEDS ORDERED: GLIPIZIDE 10 MG10 MG PO (18:16)
[2019-08-17] MEDS ORDERED: CLONIDINE HCL0.3 M3 PO (18:16)
[2019-08-17] MEDS ORDERED: GLIPIZIDE5 MG PO (18:17)
[2019-08-17 19:24] LABS: ABSOLUTE EOSINOPHILS 0.1 thou/uL (0.0-0.7); ABSOLUTE LYMPHOCYTES 1.3 thou/uL (0.8-5.3); ABSOLUTE MONOCYTES 0.9 thou/uL (0.0-1.2); BASOPHILS 0.7 %; EOSINOPHILS 2.3 %; HEMATOCRIT 39.9 % (42.0-52.0); HEMOGLOBIN 13.4 gm/dL (14.0-18.0); LYMPHOCYTES 20.5 %; MCH 29.8 pg (26.0-34.0); MCHC 33.5 g/dL (28.0-37.0); MCV 88.9 fL (80.0-100.0); NUCLEATED RBCS 0 /100WBC; PLATELET COUNT* 243 thou/uL (150-400); POLYS 62.5 %; RBC 4.49 mil/uL (4.50-6.00); RDW-CV 14.8 % (10.5-14.5); WBC 6.4 thou/uL (4.0-11.0)
[2019-08-17 19:35] LABS: CALCIUM 8.8 mg/dL (8.5-10.1); CREATININE 2.9 mg/dL (0.6-1.3); POTASSIUM 3.9 mmol/L (3.5-5.1)
[2019-08-17 19:39] LABS: ALBUMIN 2.8 g/dL (3.4-5.0); TOTAL BILIRUBIN 0.4 mg/dL (<0.1-1.0); TOTAL PROTEIN 6.4 g/dL (6.4-8.2)
[2019-08-17 21:51] VITALS: BP 150/81
--- NOTE | 2019-08-17 22:01 | NUR ---
PT ADMITTED TO FLOOR PER CART ACCOMPANIED BY ER STAFF WITH BELONGINGS. WALKS WITH STEADY GAIT FROM CART TO BED. AOX4, DENIES PAIN AT THIS TIME. HAND PHARMACOLOGY ASSOCIATE STRONG AND EQUAL. ORIENTED TO ROOM AND CALL LITE, HISTORY OBTAINED AND ASSESSMENT PERFORMED-SEE ADMIT NOTES. DTRS HERE. WILL CONTINUE TO MONITOR AND PROVIDE CARES NEEDED. CALL LITE IN EASY REACH, FAMILY AT BEDSIDE.
[2019-08-17 23:40] VITALS: BP 153/77
[2019-08-18 04:00] VITALS: BP 186/94
--- NOTE | 2019-08-18 05:49 | NUR ---
PT SLEPT ON AND OFF OVERNIGHT. RWRIST IVF INFUSING PER PUMP. HAS DENIED PAIN OR PROBLEMS THIS SHIFT. FLOMAX GIVEN AT HS PER PT REQUEST. L PUPIL DILATED FROM OPTOMETRY APPT YESTERDAY. COUNTER POCKET SEWER STRONG AND EQUAL, BLE STRENGTH STRONG AND EQUAL. HAS DENIED DIZZINESS. DRSG TO OOT CDI. CALL LITE IN EASY REACH, BED ALARM ON FOR SAFETY OVERNIGHT.
[2019-08-18 08:00] VITALS: BP 194/98
[2019-08-18 08:49] LABS: CALCIUM 8.2 mg/dL (8.5-10.1); MAGNESIUM 1.9 mg/dL (1.8-2.4); POTASSIUM 3.7 mmol/L (3.5-5.1)
--- NOTE | 2019-08-18 10:38 | EKG ---
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[place] : 1950 Requested By: Latoya Go Order Number: [id number] MD: Jw Amin Measurements Intervals [place] Rate: 69 P: 16 KS: 158 QRS: -31 QRSD: 105 T: 50 QT: 444 QTc: 476 Interpretive Statements Sinus rhythm Left ventricular hypertrophy Borderline prolonged QT interval Compared to ECG 10/05/2017 16:59:17 Left ventricular hypertrophy now present Atrial abnormality no longer present Myocardial infarct finding no longer present T-wave abnormality no longer present Electronically Signed On 08-18-2019 10:38:12 BANKRUPTCY MANAGER by Jw Amin [email or web address] <ELECTRONICALLY SIGNED> By: Jw Amin MD, FAC 08/18/19 1038 34 34 Jw Amin MD, [facility] /EPI
--- NOTE | 2019-08-18 13:29 | NUR ---
Nutrition: Consult received for "DM." Spoke with pt about DM. He stated his last A1c was probably 7.3%. He takes Metformin, has had DM for 7-8 yrs. When offered DM diet educ, he stated "Oh! We've been through all this already! I know all that stuff." He had no questions and refused DM educ today. BG is in 200s, alb 2.8, prealb 15.4, no recent A1c.
--- NOTE | 2019-08-18 15:37 | NUR ---
WOUND CARE NOTE: CONSULT RECEIVED FOR L FOOT LITTLE TOE DIABETIC ULCER. PATIENT PRESENTS WITH A FULL THICKNESS ULCERATION TO THE LEFT 5TH TOE, LATERAL ASPECT. PATIENT STATES THAT HE SEES 'MEGHANA' AT [facility]. STATES HE HAS BEEN SEEING HER FOR ABOUT 3 WEEKS. STATES THAT THE WOUND OCCURED FROM SHOES THAT DIDN'T FIT WELL. LEFT 5TH TOE, LATERAL ASPECT: WOUND MEASURES 1.1X2X1. FULL THICKNESS ULCERATION. WOUND BED IS RED, GRANULAR AND APPEARS TO BE HEALING. HOWEVER THE CENTER MOST ASPECT OF THE WOUND BED WITH SIGNIFICANT DEPTH ALSO SOME ROUGH EDGES THAT SURROUND THE AREA WITH DEPTH. FOUL ODOR NOTED EVEN AFTER CLEANSING WITH WOUND CLEANSER. TOE IS DISFIGURED, ALMOST FLAT IN APPEARANCE. NOTIFIED PHYSICIAN ON CONCERNS AND FINDINGS, DESIRES FOR PATIENT TO FOLLOW UP WITH ALFIE LUNDBERG HE HAS BEEN DOING. EDUCATED PATIENT ON IMPORTANCE OF NUTRTION/TIGHT BLOOD GLUCOSE CONTROL FOR WOUND HEALING. RECOMMEND DAILY DRESSING CHANGES ENCOURAGE GOOD NUTRTION/HYDRATION TIGHT BLOOD GLUCOSE CONTROL. FOLLOW UP WITH WOUND CARE PHYSICIAN.
[2019-08-18 16:00] VITALS: BP 184/90
[2019-08-18 16:10] LABS: URINE POTASSIUM-RANDOM 21.2 mmol/L
--- NOTE | 2019-08-18 16:34 | NUR ---
SW met with pt to complete initial assessment, introduce self, and SW role. Pt alert, oriented. Pt received phone call from his dtr that he said he needed to take; pt lived with dtr and that may be the plan at dc. SW to continue to follow to assist with safe dc planning if needs arise.
[2019-08-18 17:16] LABS: URINE BILIRUBIN NEGATIVE (Negative); URINE BLOOD NEGATIVE (Negative); URINE CLARITY CLEAR; URINE COLOR YELLOW; URINE GLUCOSE-RANDOM 2+ (Negative); URINE KETONES NEGATIVE (Negative); URINE LEUKOCYTES-REFLEX NEGATIVE (Negative); URINE NITRITE-REFLEX NEGATIVE (Negative); URINE PROTEIN NEGATIVE (Negative); URINE UROBILINOGEN 0.2 E.U./dl (0.2-1.0)
--- NOTE | 2019-08-18 17:26 | NUR ---
PT A&OX4 VSS. PT RESTS IN BED WITH CALL LIGHT IN REACH. PT ABLE TO REPOSITION IN BED UNASSISTED. IV TO R WRIST PATENT, NS RUNNING AT 150ML/HR. DRESSING TO L 5TH TOE CHANGED BY WOUND CARE NURSE, PHOTOS ON CHART. UA SENT ORDERED. UP AD BK, GAIT STEADY. LIDOCAINE PATCH APPLIED TO R FLANK FOR PAIN RELIEF.
[2019-08-19 03:10] VITALS: BP 190/92
[2019-08-19 05:38] LABS: CALCIUM 8.8 mg/dL (8.5-10.1); CREATININE 1.3 mg/dL (0.6-1.3); MAGNESIUM 1.8 mg/dL (1.8-2.4); POTASSIUM 3.9 mmol/L (3.5-5.1)
[2019-08-19 06:11] LABS: GLYCOHEMOGLOBIN (HGB A1C) 8.2 % (4.8-5.6)
--- NOTE | 2019-08-19 06:56 | NUR ---
PT SLEPT WELL OVERNIGHT. UP AD BK IN ROOM, VOIDING WITHOUT DIFFICULTY. RAC SL. HS ACCUCHECK 188, INSULIN GIVEN WITH SNACK. TRAMADOL GIVEN ONCE FOR CO R RIB SORENESS WITH GOOD RESULT. AM LABS DRAWN. PT HOPEFUL FOR DISCHARGE HOME TODAY. ABLE TO USE CALL LITE AND MAKE NEEDS KNOWN. CALL LITE IN EASY REACH.
[2019-08-19 08:21] VITALS: BP 213/109
[2019-08-19] MEDS ORDERED: LISINOPRIL20 MG PO (08:35)
[2019-08-19 12:31] VITALS: BP 165/84
[2019-08-19] MEDS ORDERED: TRAMADOL 50 MG50 MG PO (13:00)
[2019-08-19 13:02] VITALS: BP 165/84
[2019-08-19 14:25] VITALS: BP 165/84
--- NOTE | 2019-08-19 14:27 | NUR ---
PATIENT ALERT AND ORIENTED X4. DR. [place] NOTIFIED OF PATIENT BLOOD PRESSURE AM. WOUND CARE PICTURE TAKEN AND WOUND CARE PROVIDED PER WOUND CARE NURSE INSTRUCTIONS. PATIENT REPORTS HE WILL FOLLOW UP WITH CURRENT WOUND CARE CLINIC. IV REMOVED. PATIENT DENIES FURTHER NEEDS AT THIS TIME. ALL SAFETY MEASURES MAINTAINED. DISCHARGE PAPERWORK, PRESCRIPTION, PRESCRIPTION INFORMATION, AND DIET INFORMATION GIVEN TO PATIENT.
== END 2019-08-19 14:15 | disposition home or self-care (01) | DRG 205 ==
LOC: M.ERS 18:02 → M.TBA-ER 21:21 → M.3W 21:21
PROVIDERS: Internal Medicine; Nurse Practitioner Family; ADMIT Family Medicine
DX: S22.31XA Fracture of one rib, right side, initial encounter for closed fracture (principal); N17.0 Acute kidney failure with tubular necrosis; G92 Toxic encephalopathy; E44.0 Moderate protein-calorie malnutrition; A08.4 Viral intestinal infection, unspecified; E11.621 Type 2 diabetes mellitus with foot ulcer; L97.529 Non-pressure chronic ulcer of other part of left foot with unspecified severity; I10 Essential (primary) hypertension; N40.0 Benign prostatic hyperplasia without lower urinary tract symptoms; E11.40 Type 2 diabetes mellitus with diabetic neuropathy, unspecified; E86.9 Volume depletion, unspecified; Z86.711 Personal history of pulmonary embolism; Z68.32 Body mass index [BMI] 32.0-32.9, adult; V29.9XXA Motorcycle rider (driver) (passenger) injured in unspecified traffic accident, initial encounter; Y93.89 Activity, other specified; Y92.89 Other specified places as the place of occurrence of the external cause; Y99.8 Other external cause status